=== PATIENT | female | born 1985 | race Caucasian/White ===

== ENCOUNTER 2021-07-30 16:52 | Observation (INO) ==
[2021-07-30] MEDS ORDERED: LIDOCAINE 2% 5 ML VIAL ONE (19:34)
[2021-07-30] MEDS ORDERED: DEXAMETHASONE 4 MG/1 ML VIAL ONE ×2 (19:34)
[2021-07-30] MEDS ORDERED: SUCCINYLCHOLINE 200 MG/10 ML VIAL ONE (19:34)
[2021-07-30] MEDS ORDERED: propofoL 200 MG/20 ML VIAL IV ONE (19:34)
[2021-07-30] MEDS ORDERED: fentaNYL 100 MCG/2 ML VIAL ONE (19:34)
[2021-07-30] MEDS ORDERED: ONDANSETRON 4 MG/2 ML VIAL ONE (19:34)
[2021-07-30] MEDS ORDERED: ROCURONIUM 50 MG/5 ML VIAL IV ONE (19:34)
[2021-07-30] MEDS ORDERED: ALBUMIN 5% 25.0 GM/500 ML VIAL IV ONE (19:42)
[2021-07-30] MEDS ORDERED: METOCLOPRAMIDE 10 MG/2 ML VIAL ONE (19:52)
[2021-07-30 19:55] LABS: Bilirubin,Total 0.9 MG/DL (0.20-1.00); Calcium 9.3 MG/DL (8.5-10.1); Osmolality,Calculated 265.2 MOS/KG (273-304); Potassium 3.5 MMOL/L (3.5-5.1); Total Protein 8.9 G/DL (6.4-8.2)
[2021-07-30] MEDS ORDERED: ceFAZolin 1,000 MG VIAL ONE (20:10)
[2021-07-30] MEDS ORDERED: SODIUM CHLORIDE 0.9% 1,000 ML IV ONE ×2 (20:18→20:45)
[2021-07-30] MEDS ORDERED: SUGAMMADEX 200 MG/2 ML VIAL IV ONE (20:22)
[2021-07-30] MEDS ORDERED: TISSUE ADHESIVE 1 EACH APPLICATOR TOP ONE (20:23)
[2021-07-30] MEDS ORDERED: KETOROLAC 30 MG/1 ML VIAL ONE (20:45)
[2021-07-30] MEDS ORDERED: BENZOCAINE/MENTHOL LOZENGE 18/BOX PO PRN (20:49)
[2021-07-30] MEDS ORDERED: IBUPROFEN 800 MG TABLET PO PRN (20:49)
[2021-07-30] MEDS ORDERED: DOCUSATE SODIUM 100 MG CAPSULE PO PRN (20:49)
[2021-07-30] MEDS ORDERED: ONDANSETRON 4 MG/2 ML VIAL IV PRN ×2 (20:49→20:58)
[2021-07-30] MEDS ORDERED: MAGNESIUM HYDROXIDE SUSP 30 ML UDCUP PO PRN (20:49)
[2021-07-30] MEDS ORDERED: BISACODYL 10 MG SUPP RECTAL PRN (20:49)
[2021-07-30] MEDS ORDERED: RHO(D) IMMUNE GLOBULIN 300 MCG SYRINGE IM ONE (20:51)
[2021-07-30] MEDS ORDERED: HYDROmorphone 2 MG/1 ML VIAL IV PRN (20:58)
[2021-07-30 21:50] VITALS: BP 106/64
[2021-07-30] MEDS: KETOROLAC 30 MG/1 ML VIAL IV SCH (22:14)
[2021-07-30 22:25] LABS: Basophils % 0.2 % (0.0-0.8); Eosinophils % 0.1 % (0.00-10.9); Hematocrit 42.2 VOL% (35.7-47.0); Hemoglobin 13.7 GM/DL (12.0-16.0); Immature Granulocytes % 0.4 %; Immature Granulocytes Absolute 0.06 #; Lymphocytes # 1.1 10*3/uL (1.4-4.0); Lymphocytes % 7.5 % (21.3-54.2); Mean Corpuscular HGB Conc 32.5 GM/DL (32-36); Mean Corpuscular Volume 86.8 FL (87-102); Mean Platelet Volume 11.4 FL (9.6-12.0); Monocytes % 1.2 % (1.7-12.7); Neutrophils % 90.6 % (38.7-73.9); Platelet Count 264 T/CUMM (130-400); Red Blood Count 4.86 MC/CUMM (3.8-5.5); Red Cell Distribution Width 13.4 % (9.3-17.3); White Blood Count 14.7 T/CUMM (4-12)
[2021-07-30] MEDS: LACTATED RINGERS 1,000 ML IV SCH (22:49)
[2021-07-30 22:55] LABS: Lymphocytes 8 % (20-55); Segmented Neutrophils 91 % (50-85)
[2021-07-30 22:58] LABS: Platelet Estimate Normal; Total Cells Counted 100
[2021-07-31] MEDS: KETOROLAC 30 MG/1 ML VIAL IV SCH ×2 (02:28→08:25)
[2021-07-31 05:58] LABS: Hematocrit 36.3 VOL% (35.7-47.0); Hemoglobin 11.9 GM/DL (12.0-16.0); Immature Granulocytes % 0.4 %; Immature Granulocytes Absolute 0.04 #; Lymphocytes # 1.1 10*3/uL (1.4-4.0); Lymphocytes % 10.4 % (21.3-54.2); Mean Corpuscular HGB Conc 32.8 GM/DL (32-36); Mean Corpuscular Volume 86.2 FL (87-102); Monocytes % 0.6 % (1.7-12.7); Neutrophils % 88.6 % (38.7-73.9); Platelet Count 232 T/CUMM (130-400); Red Blood Count 4.21 MC/CUMM (3.8-5.5); Red Cell Distribution Width 13.3 % (9.3-17.3); White Blood Count 10.6 T/CUMM (4-12)
[2021-07-31] MEDS: LACTATED RINGERS 1,000 ML IV SCH (06:08)
== END 2021-07-31 09:55 | disposition home or self-care (01) ==
LOC: N.OB → N.CC
PROVIDERS: ADMIT Obstetrics & Gynecology; ATTEND Obstetrics & Gynecology